=== PATIENT | male | born 1995 | race Two or more races ===

== ENCOUNTER 2017-11-22 09:31 | Emergency (ER) | payer MEDICAID ==
[~2017-11-22] VITALS: Ht 170.2 cm; Wt 72.1 kg
[2017-11-22 09:35] VITALS: Ht 170.2 cm; Wt 72.1 kg
[2017-11-22 11:33] VITALS: BP 134/75
== END 2017-11-22 11:33 | disposition home or self-care (01) ==
LOC: ED 09:31
DX: S86.812A Strain of other muscle(s) and tendon(s) at lower leg level, left leg, initial encounter (principal); J45.909 Unspecified asthma, uncomplicated; I10 Essential (primary) hypertension; W17.89XA Other fall from one level to another, initial encounter; Y93.89 Activity, other specified; Y92.89 Other specified places as the place of occurrence of the external cause; Y99.8 Other external cause status
CPT/HCPCS: Q0092